=== PATIENT | male | born 1985 | race Caucasian/White ===

== ENCOUNTER 2024-05-05 18:23 | Emergency (ER) | payer SELFPAY ==
[2024-05-05 18:24] VITALS: BP 168/116; PULSE 89; RESP 18; TEMP 36.6; O2SAT 99
--- NOTE | 2024-05-05 18:30 | DI.RAD_ITS ---
Exam(s) XR HAND RT COMPLETE EXAM: XR HAND RT COMPLETE CLINICAL HISTORY: RIGHT HAND LAC. TECHNIQUE: 2D digital imaging was performed. COMPARISON: No exams were available for comparison FINDINGS: 3 views There is a linear lucency over the proximal aspect of the 2nd-index finger in the region of the middl e phalanx. There is no evidence of fracture or dislocation nor radiopaque foreign body. No osseous lesions nor erosions. No evidence of osteomyelitis. There also appears to be some air-gas in the soft tissues o n the lateral aspect of the proximal 3rd-middle finger. IMPRESSION: Soft tissues findings as above. No acute osseous findings. DATA REPOSITORY: RADIATION DOSE DELIVERED:
--- NOTE | 2024-05-05 18:40 | ED.GENADUL_ITS ---
Discharge Plan Disposition Patient Disposition: Home Condition: Stable Discharge Details Clinical Impression: Hand laceration Primary Care Provider: None,None ED Provider: Destin Grady Home Meds and New Rx's Prescriptions: New cephalexin 500 mg capsule 500 mg PO BID 4 Days Qty: 8 0RF No Action No Known Home Meds Discharge Instructions Instructions: Laceration Repair With Stitches ED Additional Instructions: * Keep wound clean with soap and water, pat dry * Starting tomorrow you can apply antibiotic ointment * keep covered with dressing as instructed, but if you are at home relaxing you can keep it open to air * Return in 7 to 10 days for suture removal * Monitor closely for signs of infection like redness swelling foul-smelling drainage. Take antibiotics to prevent infection as prescribed. HPI General Date/Time Provider Initiated Documentation: 05/05/24 18:29 . Limitations to Documentation: no limitations . Information obtained by: patient . HPI Narrative: 39-year-old gentleman without significant past medical history presents for evaluation of right hand laceration. Reports that he was moving a piece of sheet metal when it slipped and cut his hand. This happened just prior to arrival. He reports that his index finger feels numb but he has no difficulty moving it. He reports that his tetanus shot is not up to date. Related Data Home Medications ?Medication ?Instructions ?Recorded ?Confirmed Unknown [No Known Home Meds] 05/05/24 05/05/24 cephalexin 500 mg capsule 500 mg PO BID 4 days #8 caps 05/05/24 Previous Rx's ?Medication ?Instructions ?Recorded cephalexin 500 mg capsule 500 mg PO BID 4 days #8 caps 05/05/24 Allergies Allergy/AdvReac Type Severity Reaction Status Date / Time Sulfa (Sulfonamide Allergy Unknown Unknown Verified 05/05/24 18:27 Antibiotics) General Stated Complaint: Laceration LB: 3 Exam Narrative Exam Narrative: Review of Systems: All systems reviewed & are unremarkable except as noted in HPI and below Well-developed, no acute distress NCAT Right hand with 3 cm laceration between the index and thumb, no active bleeding, mild sensation decreased on the radial aspect of the index finger otherwise there is full range of motion in all joints, no obvious foreign body Course Vital Signs Vital signs: Vital Signs Temperature 36.6 C 05/05/24 18:24 Pulse 89 05/05/24 18:24 Respiratory Rate 18 05/05/24 18:24 Blood Pressure 168/116 H 05/05/24 18:24 Pulse Oximetry 99 05/05/24 18:24 Temperature 36.6 C 05/05/24 18:24 Temperature Source Skin 05/05/24 18:24 Pulse 89 05/05/24 18:24 Respiratory Rate 18 05/05/24 18:24 Blood Pressure 168/116 H 05/05/24 18:24 Pulse Oximetry 99 05/05/24 18:24 Oxygen Delivery Method Room Air 05/05/24 18:24 Oxygen Flow Rate 0 05/05/24 18:24 Pain Level 7 05/05/24 18:24 Procedures Laceration Laceration 1: Site: hand Side (If applicable): right Size (cm): 3 Description: linear Depth: simple, single layer and involves muscle layer Local anesthetic: LET(lidocaine epinephrine tetracaine) Pre-repair: wound explored, irrigated extensively and deep structures intact Skin layer closed with: other (Prolene) Size (cm): 5-0 Number of sutures: 7 Technique: simple, interrupted Subcutaneous layer closed with: chromic gut Size: 5-0 Number of sutures: 1 Medical Decision Making Emergent evaluation of hand laceration. Initial differential includes soft tissue injury, foreign body, fracture or ligamentous injury considered. Patient has normal neurovascular exam. Gross sensation intact and able to move finger against resistance in all distributions have a low suspicion for tendinous injury. will update tetanus, apply let, get x-ray imaging and repair laceration X-ray of the hand reviewed, no bony injury or foreign body noted. Wound irrigated and repaired without complication discharged with Keflex for prophylaxis. Wound care advised to patient, signs of infection discussed with him and return precautions. Recommend suture removal in 7 to 10 days Quality:SDOH Health Related Social Needs: No Data to Display PFSH All Active Problems (Updated 05/05/24 @ 19:39 by Destin Grady MD) Hand laceration (Acute) Social History Smoking/Tobacco Use Status: Never Smoking risk assessment performed?: Yes Alcohol Intake: current Alcohol Intake frequency: a few times a month Drug use: Never Substance use type: does not use Do you feel safe at home: Yes Do you feel safe in your relationship?: Yes
[2024-05-05] MEDS: Diph,Pertuss(Acell),Tet Vac/Pf 0.5 ML SYR IM (18:43)
[2024-05-05] MEDS: Lidocaine/Epinephri/Tetracaine Topical Gel 3 ML TP ×2 (18:43→19:43)
[2024-05-05] MEDS: Cephalexin 500 MG CAP, 2 CAPS/BTL PO (19:47)
== END 2024-05-05 21:44 | disposition home or self-care (01) ==
PROVIDERS: Emergency Provider Emergency Medicine
DX: S61.411A Laceration without foreign body of right hand, initial encounter (principal); Z23 Encounter for immunization; W26.8XXA Contact with other sharp object(s), not elsewhere classified, initial encounter; Y93.89 Activity, other specified
CPT/HCPCS: 12002; 90471; 90715; 99283; 73130